=== PATIENT | male | born 1990 ===

== ENCOUNTER 2021-06-22 10:32 | Emergency (ER) | payer SELFPAY | END 2021-06-22 11:02 | disposition E | LOC: CSHERS 10:32 | DX: I46.9 Cardiac arrest, cause unspecified (principal); U07.1 COVID-19; J96.90 Respiratory failure, unspecified, unspecified whether with hypoxia or hypercapnia; I21.9 Acute myocardial infarction, unspecified | CPT/HCPCS: 92950; 94760; J2997 ==